=== PATIENT | female | born 1975 | race Caucasian/White ===

== ENCOUNTER → 2018-05-07 | Outpatient (CLI) | payer BC ==
--- NOTE | 2018-05-08 07:27 | US ---
EXAMINATION TYPE: Transabdominal DATE OF EXAM: 01/21/18 COMPARISON: NONE CLINICAL HISTORY: N911 AMENORRHEA,[id number] TEST POSITIVE RESULTS. early OB, h/o PCOS EXAM PERFORMED: OBTA and OBTV EXAM MEASUREMENTS: GESTATIONAL AGE / DATING Physician Established: Not yet established Dates by LMP: (6 weeks/4 days) EDC: 12/27/2018 Dates by First Scan: No previous this is first scan Dates by Current Scan for: Out of Range, too small to date MATERNAL ANATOMY Uterus: 8.9 x 6.6 x 5.8cm Right Ovary: 3.6 x 2.6 x 2.8cm Left Ovary: 2.6 x 2.4 x 2.2cm Post CDS / Adnexa: wnl Presence of free fluid: no Presence of corpus luteal cyst: right ovary = 2.1cm Presence of subchorionic bleed: no GESTATION / SURVEY CRL: not seen at today's exam MSD: 0.9cm Yolk Sac (normal less than 6mm): 0.3cm IUP: gestational sac seen implanted deep within a very thickened endometrium. Date of LMP: 03/22/2018 Beta HcG (if available): not available IMPRESSION: Identification of an intrauterine gestational sac and yolk sac. This is implanted eccentrically deep within the endometrium and a pole is not yet seen. Therefore findings likely relate to early in trauterine gestation however short-term follow-up pelvic ultrasound is recommended in 5-7 days to en sure development of a pole as well as short-term serial serum beta hCGs.
== END | disposition home or self-care (01) ==
LOC: RADUSWWP 16:12
PROVIDERS: ATTEND Family Medicine
DX: O26.899 Other specified pregnancy related conditions, unspecified trimester (principal); N91.1 Secondary amenorrhea; Z3A.00 Weeks of gestation of pregnancy not specified
CPT/HCPCS: 76801; 76817

== ENCOUNTER → 2018-05-20 | Outpatient (CLI) | payer BC | END | disposition home or self-care (01) | LOC: LABWHC1 14:05 | PROVIDERS: ATTEND Obstetrics & Gynecology Obstetrics | DX: O20.0 Threatened abortion (principal); Z3A.00 Weeks of gestation of pregnancy not specified | CPT/HCPCS: 36415; 84702; 86850; 86900; 86901 ==

== ENCOUNTER → 2018-05-23 | Outpatient (CLI) | payer BC | END | disposition home or self-care (01) | LOC: LABWHC1 13:55 | PROVIDERS: ATTEND Obstetrics & Gynecology Obstetrics | DX: Z34.90 Encounter for supervision of normal pregnancy, unspecified, unspecified trimester (principal); Z3A.00 Weeks of gestation of pregnancy not specified | CPT/HCPCS: 36415; 84702 ==

== ENCOUNTER → 2018-05-29 | Outpatient (CLI) | payer BC | END | disposition home or self-care (01) | LOC: LABWHC1 14:41 | PROVIDERS: ATTEND Obstetrics & Gynecology Obstetrics | DX: O20.0 Threatened abortion (principal); Z3A.00 Weeks of gestation of pregnancy not specified | CPT/HCPCS: 36415; 84702 ==

== ENCOUNTER → 2018-06-25 | Outpatient (CLI) | payer BC | END | disposition home or self-care (01) | LOC: LABWHC1 16:18 | PROVIDERS: ATTEND Obstetrics & Gynecology Obstetrics | DX: O02.1 Missed abortion (principal) | CPT/HCPCS: 36415; 84702 ==

== ENCOUNTER → 2019-04-02 | Outpatient (CLI) | payer BC ==
--- NOTE | 2019-04-03 07:43 | MM ---
Reason for exam: screening (asymptomatic). Baseline mammogram. History: Patient is nulliparous. Physical Findings: Nurse did not find any significant physical abnormalities on exam. MG 3D Screening Mammo W/Cad Bilateral CC and MLO view(s) were taken. The breast tissue is heterogeneously dense. This may lower the sensitivity of mammography. There is small chronic nodularity in the right breast. There is no discrete abnormality. These results were verbally communicated with the patient and result sheet given to the patient on 04/02/19. ASSESSMENT: Negative, BI-RAD 1 RECOMMENDATION: Routine screening mammogram of both breasts in 1 year.
== END | disposition home or self-care (01) ==
LOC: RADMAMWWP 15:32
PROVIDERS: ATTEND Family Medicine
DX: Z12.31 Encounter for screening mammogram for malignant neoplasm of breast (principal)
CPT/HCPCS: 77063; 77067

== ENCOUNTER 2021-09-08 15:25 | Emergency (ER) | payer BC ==
[2021-09-08 15:44] VITALS: BP 128/79; PULSE 81; RESP 18; TEMP 97
--- NOTE | 2021-09-08 16:20 | ED ---
General Adult HPI - General Chief complaint: Vaginal Bleeding Stated complaint: 7 Wks Preg,Spotting Time Seen by Provider: 09/08/21 16:01 Source: patient Mode of arrival: ambulatory Limitations: no limitations - History of Present Illness Initial comments: Dictation was produced using [employer] dictation software. please excuse any grammatical, word or spelling errors. Chief Complaint: 46-year-old female with history of multiple miscarriages presents to the emergency department for mild pelvic cramping and vaginal bleeding History of Present Illness: She is a 46-year-old female she has had trouble getting over the last several years. She is been for approximately 7 weeks. She had a ultrasound performed 2 weeks ago that showed a viable intrauterine . Today she had some discomfort in her pelvis. Sh e states that she did have some mild vaginal bleeding. Patient takes medications. She has had follow-up with her digital business analyst. She takes progesterone suppositories to aid with the . Denies any fevers. No nausea or vomiting. The ROS documented in this emergency department record has been reviewed and confirmed by me. Those systems with pertinent positive or negative responses have been documented in the HPI. All other systems are other negative and/or noncontributory. PHYSICAL EXAM: General Impression: Alert and oriented x3, not in acute distress HEENT: Normocephalic atraumatic, extra-ocular movements intact, pupils equal and reactive to light bilaterally, mucous membranes moist. Cardiovascular: Heart regular rate and rhythm Chest: Able to complete full sentences, no retractions, no tachypnea Abdomen: abdomen soft, non-tender, non-distended, no organomegaly Musculoskeletal: Pulses present and equal in all extremities, no peripheral edema Motor: no focal deficits noted Neurological: CN II-XII grossly intact, no focal motor or sensory deficits noted Skin: Intact with no visualized rashes Psych: Normal affect and mood ED course: 46-year-old female presents to the emergency department for threatened miscarriage. She did have a confirmatory ultrasound 2 weeks ago that showed viable tree uterine . Signs upon arrival are within acceptable limits. She had some symptoms of pelvic cramping and vaginal bleeding. Laboratory evaluation obtained. CBC unremarkable. Metabolic panel is negative. Beta Quant is 1385.8. Urinalysis is negative. OB ultrasound shows demise. No identifiable heart rate. Patient reevaluated at the bedside at 5:45 PM. Patient declined pelvic exam. Precautions discussed. She is told to seek medical attention with profuse vaginal bleeding and symptoms of anemia. - Related Data Home Medications Medication Instructions Recorded Confirmed Cholecalciferol [Vitamin D3 (25 25 mcg PO DAILY 09/08/21 09/08/21 Mcg = 1000 Iu)] Pnv,Calcium 72/Iron/Folic Acid 1 tab PO DAILY 09/08/21 09/08/21 [ Plus Tablet] Progesterone, Micronized 200 mg VAGINAL HS 09/08/21 09/08/21 [Progesterone] Psyllium Husk [Metamucil] 0.8 gm PO DAILY PRN 09/08/21 09/08/21 Allergies Allergy/AdvReac Type Severity Reaction Status Date / Time Penicillins Allergy Unknown Verified 09/08/21 16:21 Review of Systems ROS Statement: Those systems with pertinent positive or pertinent negative responses have been documented in the HPI. ROS Other: All systems not noted in ROS Statement are negative. Past Medical History Past Medical History: No Reported History History of Any Multi-Drug Resistant Organisms: None Reported Past Surgical History: No Surgical Hx Reported Past Psychological History: No Psychological Hx Reported Smoking Status: Former smoker Past Alcohol Use History: None Reported Past Drug Use History: None Reported General Exam Limitations: no limitations Course Vital Signs 09/08/21 15:40 Temperature 97 F L Pulse Rate 81 Respiratory 18 Rate Blood Pressure 128/79 O2 Sat by Pulse 98 Oximetry Medical Decision Making - Lab Data Result diagrams: 09/08/21 16:31 09/08/21 16:31 Lab Results 09/08/21 09/08/21 09/08/21 Range/Units 16:31 16:31 16:31 WBC 7.3 (3.8-10.6) k/uL RBC 4.58 (3.80-5.40) m/uL Hgb 13.5 (11.4-16.0) gm/dL Hct 39.1 (34.0-46.0) % MCV 85.4 (80.0-100.0) fL MCH 29.4 (25.0-35.0) pg MCHC 34.4 (31.0-37.0) g/dL RDW 15.6 H (11.5-15.5) % Plt Count 406 (150-450) k/uL MPV 7.1 Neutrophils % 70 % Lymphocytes % 22 % Monocytes % 4 % Eosinophils % 2 % Basophils % 0 % Neutrophils # 5.1 (1.3-7.7) k/uL Lymphocytes # 1.6 (1.0-4.8) k/uL Monocytes # 0.3 (0-1.0) k/uL Eosinophils # 0.1 (0-0.7) k/uL Basophils # 0.0 (0-0.2) k/uL Sodium 135 L (137-145) mmol/L Potassium 3.9 (3.5-5.1) mmol/L Chloride 101 (98-107) mmol/L Carbon Dioxide 24 (22-30) mmol/L Anion Gap 10 mmol/L BUN 9 (7-17) mg/dL Creatinine 0.56 (0.52-1.04) mg/dL Est GFR (CKD-EPI)AfAm >90 (>60 ml/min/1.73 sqM) Est GFR (CKD-EPI)NonAf >90 (>60 ml/min/1.73 sqM) Glucose 101 H (74-99) mg/dL Calcium 10.1 (8.4-10.2) mg/dL HCG, Quant 1385.8 mIU/mL Urine Color Urine Appearance (Clear) Urine pH (5.0-8.0) Ur Specific [place] (1.001-1.035) Urine Protein (Negative) Urine Glucose (UA) (Negative) Urine Ketones (Negative) Urine Blood (Negative) Urine Nitrite (Negative) Urine Bilirubin (Negative) Urine Urobilinogen (<2.0) mg/dL Ur Leukocyte Esterase (Negative) Blood Type B Positive Blood Type Recheck B Pos Bld Type Recheck Status No Antibody Screen NEGATIVE Spec Expiration Date 09/11/2021 - 233009/08/21 Range/Units 16:31 WBC (3.8-10.6) k/uL RBC (3.80-5.40) m/uL Hgb (11.4-16.0) gm/dL Hct (34.0-46.0) % MCV (80.0-100.0) fL MCH (25.0-35.0) pg MCHC (31.0-37.0) g/dL RDW (11.5-15.5) % Plt Count (150-450) k/uL MPV Neutrophils % % Lymphocytes % % Monocytes % % Eosinophils % % Basophils % % Neutrophils # (1.3-7.7) k/uL Lymphocytes # (1.0-4.8) k/uL Monocytes # (0-1.0) k/uL Eosinophils # (0-0.7) k/uL Basophils # (0-0.2) k/uL Sodium (137-145) mmol/L Potassium (3.5-5.1) mmol/L Chloride (98-107) mmol/L Carbon Dioxide (22-30) mmol/L Anion Gap mmol/L BUN (7-17) mg/dL Creatinine (0.52-1.04) mg/dL Est GFR (CKD-EPI)AfAm (>60 ml/min/1.73 sqM) Est GFR (CKD-EPI)NonAf (>60 ml/min/1.73 sqM) Glucose (74-99) mg/dL Calcium (8.4-10.2) mg/dL HCG, Quant mIU/mL Urine Color Yellow Urine Appearance Clear (Clear) Urine pH 5.5 (5.0-8.0) Ur Specific [place] 1.023 (1.001-1.035) Urine Protein Negative (Negative) Urine Glucose (UA) Negative (Negative) Urine Ketones Negative (Negative) Urine Blood Negative (Negative) Urine Nitrite Negative (Negative) Urine Bilirubin Negative (Negative) Urine Urobilinogen <2.0 (<2.0) mg/dL Ur Leukocyte Esterase Negative (Negative) Blood Type Blood Type Recheck Bld Type Recheck Status Antibody Screen Spec Expiration Date Disposition Clinical Impression: Miscarriage Disposition: HOME SELF-CARE Condition: Fair Instructions (If sedation given, give patient instructions): Miscarriage (ED) Is patient prescribed a controlled substance at d/c from ED?: No Referrals: Nikki Ladd DO [Doctor of Osteopathic Medicine] - 1-2 days
[2021-09-08 16:36] LABS: Basophils % (A) 0 %; Eosinophils # (A) 0.1 k/uL (0-0.7); Eosinophils % (A) 2 %; HCT 39.1 % (34.0-46.0); HGB 13.5 gm/dL (11.4-16.0); Lymphocytes # (A) 1.6 k/uL (1.0-4.8); Lymphocytes % (A) 22 %; MCH 29.4 pg (25.0-35.0); MCHC 34.4 g/dL (31.0-37.0); MCV 85.4 fL (80.0-100.0); Mean Platelet Volume 7.1; Monocytes # (A) 0.3 k/uL (0-1.0); Monocytes % (A) 4 %; Neutrophils # (A) 5.1 k/uL (1.3-7.7); Neutrophils % (A) 70 %; Platelet Count 406 k/uL (150-450); RBC 4.58 m/uL (3.80-5.40); RDW 15.6 % (11.5-15.5); WBC 7.3 k/uL (3.8-10.6)
[2021-09-08 16:44] LABS: African American GFR (CKD) >90 (>60 ml/min/1.73 sqM); Anion Gap 10 mmol/L; Blood Urea Nitrogen 9 mg/dL (7-17); Calcium 10.1 mg/dL (8.4-10.2); Carbon Dioxide 24 mmol/L (22-30); Chloride 101 mmol/L (98-107); Glucose 101 mg/dL (74-99); Non-African American GFR(CKD) >90 (>60 ml/min/1.73 sqM); Potassium 3.9 mmol/L (3.5-5.1); Sodium 135 mmol/L (137-145)
[2021-09-08 16:46] LABS: Appearance,Urine Clear (Clear); Bilirubin,Urine Negative (Negative); Blood,Urine Negative (Negative); Color,Urine Yellow; Glucose,Urine (UA) Negative (Negative); Ketones,Urine Negative (Negative); Leukocyte Esterase,Urine Negative (Negative); Nitrite,Urine Negative (Negative); PH, Urine 5.5 (5.0-8.0); Protein,Urine Negative (Negative); Specific Gravity,Urine 1.023 (1.001-1.035); Urobilinogen,Urine <2.0 mg/dL (<2.0)
[2021-09-08 17:01] LABS: HCG,Quantitative Serum 1385.8 mIU/mL
--- NOTE | 2021-09-08 17:30 | US ---
EXAMINATION TYPE: Transabdominal DATE OF EXAM: 09/08/2021 5:18 PM COMPARISON: NONE CLINICAL HISTORY: pelvic pain. Positive beta-hCG test EXAM PERFORMED: Transvaginal (TV) and Transabdominal (TA) EXAM MEASUREMENTS: GESTATIONAL AGE / DATING Physician Established: (7 weeks/1 days) EDC: 04-26-22 Dates by LMP: (7 weeks/1 days) EDC: 04-26-22 Dates by First Scan: Not done at this facility Dates by Current Scan for: Unable to date by today's study MATERNAL ANATOMY Uterus: 8.5 x 5.4 x 7.6cm Right Ovary: not visualized Left Ovary: not visualized Post CDS / Adnexa: wnl Presence of free fluid: wnl GESTATION / SURVEY CRL: 0.3 (5 weeks/3 days) MSD: 1.3 (6 weeks/0 days) Yolk Sac (normal less than 6mm): Heart Rate: no heart tones . Beta HcG (if available): Not available at this time Anteverted uterus. There is gestational sac and pole seen. Gestational sac is somewhat irregula r, without significant surrounding decidual reaction. pole poorly defined. No yolk sac clearly seen. No free fluid. Neither ovary clearly seen. IMPRESSION: Findings favor intrauterine demise but too early to visualize live intrauterine pre gnancy is not entirely excluded due to small size of pole. Strict clinical correlation is advis ed.
== END 2021-09-08 18:00 | disposition home or self-care (01) ==
LOC: EC 15:25
DX: O03.9 Complete or unspecified spontaneous abortion without complication (principal); Z87.891 Personal history of nicotine dependence; Z88.0 Allergy status to penicillin; Z3A.01 Less than 8 weeks gestation of pregnancy
CPT/HCPCS: 36415; 76801; 76817; 80048; 81003; 84702; 85025; 86850; 86900; 86901; 99284

== ENCOUNTER → 2021-09-26 | Outpatient (CLI) | payer BC ==
[2021-10-06 01:38] LABS: Prothrombin 20210 (Factor II) NEGATIVE
== END | disposition home or self-care (01) ==
LOC: LABWHC1 14:18
PROVIDERS: ATTEND Obstetrics & Gynecology Obstetrics
DX: O02.1 Missed abortion (principal); Z3A.00 Weeks of gestation of pregnancy not specified
CPT/HCPCS: 36415; 81240; 81241; 81291; 85210

== ENCOUNTER → 2021-09-26 | Outpatient (CLI) | payer BC ==
--- NOTE | 2021-09-28 11:42 | MM ---
Reason for exam: screening (asymptomatic). Last mammogram was performed 2 years and 6 months ago. History: Patient is nulliparous. Physical Findings: A clinical breast exam by your physician is recommended on an annual basis and results should be correlated with mammographic findings. MG Screening Mammo w CAD Bilateral CC, MLO, and XCCL view(s) were taken. Prior study comparison: April 02, 2019, bilateral MG 3d screening mammo w/cad. The breast tissue is heterogeneously dense. This may lower the sensitivity of mammography. No significant changes when compared with prior studies. ASSESSMENT: Benign, BI-RAD 2 RECOMMENDATION: Routine screening mammogram of both breasts in 1 year.
== END | disposition home or self-care (01) ==
LOC: RADMAMWWP 13:48
PROVIDERS: ATTEND Family Medicine
DX: Z12.31 Encounter for screening mammogram for malignant neoplasm of breast (principal)
CPT/HCPCS: 77067

== ENCOUNTER → 2023-01-04 | Outpatient (CLI) | payer BC ==
--- NOTE | 2023-01-06 15:53 | MR ---
EXAMINATION TYPE: MR knee LT wo con DATE OF EXAM: 01/04/2023 COMPARISON: Left knee x-ray 11 days ago HISTORY: Left knee pain, locking and swelling, S/P fall injury 6 months ago. TECHNIQUE: Multiplanar, multisequence images of the knee is performed without IV contrast. FINDINGS: MEDIAL MENISCUS: Medial extrusion of medial meniscus on coronal images. Subtle increased signal centr al body and posterior horn medial does not definitively have extension to articular surface. LATERAL MENISCUS: Anterior and posterior horns are intact without tear. CRUCIATE LIGAMENTS: The anterior and posterior cruciate ligaments are intact and unremarkable. COLLATERAL LIGAMENTS: The medial collateral ligament and lateral collateral ligament complex are inta ct and unremarkable. EXTENSOR MECHANISM: Visualized quadriceps and patellar tendons are intact. EFFUSION: Small to moderate-sized suprapatellar joint effusion. POPLITEAL CYST: Small to moderate size popliteal/hicks cyst measures 4.7 cm long axis sagittal image 30. TRICOMPARTMENT SPACES: Mild to moderate tricompartment joint space loss. No significant spurring. CARTILAGE: Early cartilaginous loss medial tibiofemoral compartment. No significant chondromalacia pa tella. BONE MARROW SIGNAL: Some heterogeneity consistent with red marrow reconversion. No suspicious edema. OTHER: No additional significant abnormality is appreciated. IMPRESSION: 1. At least intrasubstance tear central body and posterior horn of the medial meniscus. No full-thick ness tear. 2. Small to moderate-sized suprapatellar joint effusion. 3. Small to moderate size popliteal cyst. 4. Mild to borderline moderate tricompartment degenerative changes as detailed above there is
== END | disposition home or self-care (01) ==
LOC: RADMRIMAIN 07:05
PROVIDERS: ATTEND Physician Assistant
DX: S83.242A Other tear of medial meniscus, current injury, left knee, initial encounter (principal); M17.12 Unilateral primary osteoarthritis, left knee; M25.462 Effusion, left knee; M71.22 Synovial cyst of popliteal space [Baker], left knee